=== PATIENT | female | born 1940 | race Caucasian/White ===

== ENCOUNTER 2019-07-27 17:20 | Inpatient (IN) | payer MEDICAID, MEDICARE ==
[~2019-07-27] VITALS: Ht 152.4 cm; Wt 59.0 kg
[2019-07-27 19:40] VITALS: BP 101/60
--- NOTE | 2019-07-27 19:50 | NUR ---
MS SAIL FINISHER MACHINE NOTES Received patient via gurney accompanied by 2 lead javascript developer. Admitted to [facility] 316-2 due to UTI under the service of Dr. Mancera. Admission routine done. Belongings inventory completed by the assigned EMT/PARAMEDIC. Leelee RESENDIZ, with admission ordered noted and carried out. Per daughter, she is going to bring the medication list the patient is taking. Daughter remained at bedside throughout the shift. Patient is A/O x4, Turkmen speaking only. Kept on bed clean, dry and comfortable. All nursing needs attended. No due meds at this time. Will continue to monitor accordingly.
[2019-07-27 20:45] VITALS: BP 101/60
[2019-07-27] MEDS ORDERED: ONDANSETRON HCL/PF 4 MG/2 ML VIAL IVP PRN (21:00)
[2019-07-27] MEDS ORDERED: Z GUARD REMEDY 2 OZ OINT TP PRN (21:00)
[2019-07-27] MEDS ORDERED: MAGNESIUM HYDROXIDE 30 ML UDC PO PRN (21:00)
[2019-07-27] MEDS ORDERED: ZOLPIDEM TARTRATE 5 MG TABLET PO PRN (21:00)
[2019-07-27] MEDS ORDERED: ACETAMINOPHEN 325 MG TABLET PO PRN (21:00)
[2019-07-27] MEDS ORDERED: MAG HYDROX/AL HYDROX/SIMETH 30 ML UDC PO PRN (21:00)
--- NOTE | 2019-07-28 06:50 | NUR ---
MS RN CLOSING NOTES Patient asleep, easily awaken. On RA, no SOB/respiratory distress noted. All nursing needs attended. Due meds given ordered, no ASE noted. Kept on bed clean, dry and comfortable. On fall precautions, call light within easy reach. Endorsed to the next shift.
[2019-07-28 07:16] LABS: BASOPHILS # (AUTO) 0.1 /CMM (0.0-0.2); BASOPHILS % (AUTO) 0.8 % (0.0-2.0); EOSINOPHILS % (AUTO) 1.4 % (0.0-6.0); HEMATOCRIT 41 % (33-45); HEMOGLOBIN 13.4 g/dL (11.5-14.8); LYMPHOCYTES # (AUTO) 1.7 /CMM (0.8-4.8); LYMPHOCYTES % (AUTO) 24.6 % (20.0-44.0); MEAN CORPUSCULAR HGB CONC 33 g/dl (31.0-36.0); MEAN CORPUSCULAR VOLUME 90 fL (82-100); MONOCYTES # (AUTO) 0.4 /CMM (0.1-1.30); MONOCYTES % (AUTO) 6.3 % (2.0-12.0); NEUTROPHILS # (AUTO) 4.7 /CMM (1.8-8.9); NEUTROPHILS % (AUTO) 66.9 % (43.0-81.0); PLATELET COUNT (AUTO) 196 /CMM (150-450); RED BLOOD CELL COUNT(AUTO) 4.57 MIL/uL (4.0-5.2)
[2019-07-28 07:19] LABS: CHOLESTEROL 131 mg/dL (<200); HDL CHOLESTEROL 35 mg/dL (40-60); LDL 59 mg/dL (0-99); TRIGLYCERIDES 238 mg/dL (30-150)
[2019-07-28 08:00] VITALS: BP 100/53
--- NOTE | 2019-07-28 08:00 | NUR ---
MS CAREN AM NOTES Received patient alert,awake with daughter at the bedside.Per daughter, she is going to bring the medication list the patient is taking.Patient is A/O x4, South Sudanese speaking only.Denies any pain or distress. Kept on bed clean, dry and comfortable.Call light placed within reach. Will continue to monitor accordingly.
[2019-07-28 08:41] LABS: CARBON DIOXIDE 24 mmol/L (21-32); CHLORIDE 106 mmol/L (98-107); CREATININE 1.4 mg/dL (0.6-1.3); GLUCOSE 85 mg/dL (74-106); MAGNESIUM 1.3 mg/dL (1.8-2.4); PHOSPHORUS 2.2 mg/dL (2.5-4.9); POTASSIUM 3.4 mmol/L (3.5-5.1); SODIUM SERUM 140 mmol/L (136-145); UREA NITROGEN, BLOOD 17 mg/dL (7-18)
[2019-07-28 08:55] LABS: CALCIUM, SERUM 16.7 mg/dL (8.5-10.1)
[2019-07-28] MEDS ORDERED: POTASSIUM CHLORIDE 20 MEQ TAB.PRT.SR PO SCH (09:30)
[2019-07-28] MEDS ORDERED: ASPI-605 PO (09:37)
[2019-07-28] MEDS ORDERED: LUBI8CAP PO (09:37)
[2019-07-28] MEDS ORDERED: ENAL10TA PO (09:37)
[2019-07-28] MEDS ORDERED: K PHOS NEUTRAL 250 MG TABLET PO ONE (10:00)
[2019-07-28] MEDS: Magnesium 1GM/D5W 100ML PREMIX 100 ML IV SCH ×4 (10:00→14:43)
[2019-07-28] MEDS ORDERED: IV NS 0.9% 1,000 ML IV PRN (10:30)
[2019-07-28] MEDS: IV NS 0.9% 1,000 ML IV PRN (10:42)
[2019-07-28] MEDS ORDERED: IV NS 0.9% 1,000 ML BAG IV SCH (11:00)
--- NOTE | 2019-07-28 11:34 | NUR ---
PT WAS BROUGHT DOWN TO CT DELAYING IV MG ADMINISTRATION
[2019-07-28 11:39] LABS: APPEARANCE,URINE CLEAR (CLEAR); BILIRUBIN,URINE NEGATIVE (NEGATIVE); BLOOD, URINE NEGATIVE Ery/uL (NEGATIVE); COLOR,URINE YELLOW (YELLOW); KETONES,URINE NEGATIVE (NEGATIVE); LEUKOCYTE ESTERASE ,URINE 2+ (NEGATIVE); NITRITE, URINE NEGATIVE (NEGATIVE); PH,URINE 6.5 (5.0-8.0); PROTEIN,URINE TRACE mg/dl (NEGATIVE); UGLUCOSE NEGATIVE (NEGATIVE); UROBILINOGEN,URINE 0.2 EU/dL (0.2)
[2019-07-28 11:53] LABS: BACTERIA,URINE None seen /HPF (None Seen); RBC,URINE 0-2 /HPF (0-2); SQUAMOUS EPITHELIAL CELL,UR H /HPF (None Seen)
--- NOTE | 2019-07-28 11:56 | NUR ---
PT came back FROM CT SCAN PROCEDURE
[2019-07-28 16:00] VITALS: BP 101/67
--- NOTE | 2019-07-28 18:55 | NUR ---
RN medsurg opening notes Received Pt from morning nurse. Pt is alert and oriented X4. Pt's daughter at the bedside. Respiration is normal. NO SOB. No nausea or vomiting. Pt denies any pain or discomfort at this time. IV sites at RFA # 20 is clean, intact, patent and infusing well NS @ 100ml/hr. Instructed to call. Safety precautions is maintained. Bed at low position, brakes locked, side rails upX2 and call light is within reach. Will continue to monitor and assist all needs.
--- NOTE | 2019-07-28 19:09 | NUR ---
PT RESTING IN BED DENYING Any PAIN OR DISTRESS.WITH ONGOING IVF OF NS AT 100 ML/HR INFUSING WELL.WITH DAUGHTER AT BEDSIDE. CALL LIGHT PLACED WITHIN REACH.
[2019-07-28 20:00] VITALS: BP 106/57
[2019-07-28] MEDS: CEFTRIAXONE 1 G in IV D5W 50 ML IV SCH (20:11)
[2019-07-29] MEDS: IV NS 0.9% 1,000 ML IV PRN ×2 (04:07→17:16)
--- NOTE | 2019-07-29 06:49 | NUR ---
RN medsurg closing notes Pt is sleeping in bed comfortably. Awaken easily. Pt's daughter at the bedside. Respiration is normal. No SOB. No nausea or vomiting. IV sites at RFA is clean, intact and infusing NS @ 100ml/hr. All needs met and attended. Routine meds given as ordered. VS is stable. Kept Pt clean, dry and warm. Instructed to call. Safety precautions is maintained. Bed at low position, brakes locked, side rails up X2 and call light is within reach. Will endorse to morning nurse for MARIELENA.
[2019-07-29 06:59] LABS: CARBON DIOXIDE 27 mmol/L (21-32); CHLORIDE 108 mmol/L (98-107); CREATININE 1.4 mg/dL (0.6-1.3); GLUCOSE 85 mg/dL (74-106); MAGNESIUM 2.2 mg/dL (1.8-2.4); PHOSPHORUS 1.9 mg/dL (2.5-4.9); POTASSIUM 3.1 mmol/L (3.5-5.1); SODIUM SERUM 140 mmol/L (136-145); UREA NITROGEN, BLOOD 13 mg/dL (7-18)
[2019-07-29 07:28] LABS: CALCIUM, SERUM 13.5 mg/dL (8.5-10.1)
[2019-07-29 08:00] VITALS: BP 105/62
--- NOTE | 2019-07-29 08:00 | NUR ---
MS RN opening notes Received Pt is alert and oriented X4. Respiration is normal. NO SOB. No nausea or vomiting. Pt denies any pain or discomfort at this time. IV sites at RFA # 20 is clean, intact, patent and infusing well NS @ 100ml/hr. Instructed to call. Safety precautions is maintained. Bed at low position, brakes locked, side rails upX2 and call light is within reach. Will continue to monitor and assist all needs.
[2019-07-29] MEDS ORDERED: K PHOS NEUTRAL 250 MG TABLET PO ONE (12:00)
[2019-07-29] MEDS: POTASSIUM CHLORIDE 20 MEQ TAB.PRT.SR PO SCH ×2 (12:13→13:56)
[2019-07-29] MEDS ORDERED: CALCITONIN,SALMON INJ 400 UNITS/2 ML VIAL SQ SCH (13:00)
[2019-07-29 16:00] VITALS: BP 105/62
--- NOTE | 2019-07-29 17:21 | NUR ---
PT SITTING IN THE CHAIR BY THE SIDE OF BED.EATING DINNER.WITH ONGOING IVF NS AT 75 ML/HR INFUSING WELL.DAUGHTER AT THE BEDSIDE.DENYING ANY PAIN OR DISTRESS. CALL LIGHT PLACED WITHIN REACH.
--- NOTE | 2019-07-29 18:55 | NUR ---
RN zeeshanrjaneth opening notes Received Pt from morning nurse. Pt is resting in bed comfortably watching TV. Pt is alert and orientedX4. Pt speaks Paraguayan and able to make needs known. Pt's daughter at the bed side. Respiration is normal. No SOB. No nausea or vomiting. No S/S of distress noted. POC of was discussed with Pt and Pt's daughter. Pt and Pt's daughter verbalized understanding. IV sites at RFA #20 is clean, intact, patent and infusing well NS @ 75 ml/hr. Instructed to call. Safety precautions is maintained. Bed at low position, side rails upX2, brakes locked and call light is within reach. Will continue to monitor and assist all needs.
[2019-07-29] MEDS: HYDROCODONE/APAP 5/325MG 1 EACH TABLET PO PRN (19:25)
--- NOTE | 2019-07-29 19:26 | NUR ---
RN medsurg notes Administered [place] 5-325 tab/1 tab/ PO as ordered for right leg pain 6/10 on pain scale per Pt request. Instructed to call. Will continue to monitor.
[2019-07-29 20:00] VITALS: BP 108/62
[2019-07-29 20:07] VITALS: BP 108/62
[2019-07-29] MEDS: CEFTRIAXONE 1 G in IV D5W 50 ML IV SCH (20:09)
[2019-07-30] MEDS: IV NS 0.9% 1,000 ML IV PRN (05:31)
--- NOTE | 2019-07-30 07:00 | NUR ---
RN medsurg closing notes Pt is sleeping in bed comfortably. Awaken easily. Respiration is normal. No SOB. No nausea or vomiting. Pt denies any pain or discomfort at this time. IV sites at RFA is clean, intact and patent. All needs met and attended. Routine meds given as ordered. VS is stable. Kept Pt clean, dry and warm. Instructed to call. Safety precautions is maintained. Bed at low position, brakes locked, side rails up X2 and call light is within reach. Will endorse to morning nurse for MARIELENA.
[2019-07-30 07:01] LABS: BASOPHILS % (AUTO) 0.8 % (0.0-2.0); EOSINOPHILS % (AUTO) 6.1 % (0.0-6.0); HEMATOCRIT 35 % (33-45); HEMOGLOBIN 11.5 g/dL (11.5-14.8); LYMPHOCYTES # (AUTO) 1.9 /CMM (0.8-4.8); LYMPHOCYTES % (AUTO) 40.7 % (20.0-44.0); MEAN CORPUSCULAR HGB CONC 33 g/dl (31.0-36.0); MEAN CORPUSCULAR VOLUME 90 fL (82-100); MONOCYTES # (AUTO) 0.3 /CMM (0.1-1.30); MONOCYTES % (AUTO) 5.9 % (2.0-12.0); NEUTROPHILS # (AUTO) 2.2 /CMM (1.8-8.9); NEUTROPHILS % (AUTO) 46.5 % (43.0-81.0); PLATELET COUNT (AUTO) 163 /CMM (150-450); RED BLOOD CELL COUNT(AUTO) 3.85 MIL/uL (4.0-5.2); WHITE BLOOD COUNT (AUTO) 4.7 K/uL (4.3-11.0)
[2019-07-30 07:04] LABS: ALBUMIN 2.4 g/dL (3.4-5.0); BILIRUBIN,TOTAL 0.2 mg/dL (0.2-1.0); CALCIUM, SERUM 12.1 mg/dL (8.5-10.1); CREATININE 1.1 mg/dL (0.6-1.3); MAGNESIUM 1.6 mg/dL (1.8-2.4); POTASSIUM 3.3 mmol/L (3.5-5.1); TOTAL PROTEIN, SERUM 5.3 g/dL (6.4-8.2)
--- NOTE | 2019-07-30 07:38 | NUR ---
RN OPENING NOTES PT AWAKE AND RESTING IN BED. NO COMPLAINTS OF PAIN, DISTRESS OR SOB AT THIS TIME. PT HAS RIGHT FA #20 RUNNING NS @75 ML/HR. SAFETY PRECAUTIONS IN PLACE, BED IN LOWEST LOCKED POSITION, X2 SIDE RAILS UP AND CALL LIGHT WITHIN REACH. WILL CONTINUE TO MONITOR.
[2019-07-30 08:01] VITALS: BP 101/59
[2019-07-30] MEDS: CALCITONIN,SALMON,SYNTHETIC 3.7 ML SPRAY.PUMP NS SCH (08:19)
[2019-07-30] MEDS: HYDROCODONE/APAP 5/325MG 1 EACH TABLET PO PRN (09:14)
[2019-07-30] MEDS ORDERED: K PHOS NEUTRAL 250 MG TABLET PO ONE (10:00)
[2019-07-30] MEDS: Magnesium 1GM/D5W 100ML PREMIX 100 ML IV SCH ×2 (10:33→11:40)
[2019-07-30] MEDS: POTASSIUM CHLORIDE 20 MEQ TAB.PRT.SR PO SCH ×2 (10:33→11:40)
--- NOTE | 2019-07-30 11:00 | NUR ---
RN NOTES PER DR MATHIS, ORDER NEURO CONSULT AND CT OF HEAD WITHOUT CONTRAST. WILL INPUT ORDERS.
[2019-07-30 16:25] VITALS: BP 99/58
--- NOTE | 2019-07-30 18:31 | NUR ---
RN CLOSING NOTES PT AWAKE AND RESTING IN BED. PT PRIMARY THAI SPEAKER. NO COMPLAINTS OF PAIN, DISTRESS OR SOB AT THIS TIME. PT HAS RIGHT FA #20 RUNNING NS @75 ML/HR. SAFETY PRECAUTIONS IN PLACE, BED IN LOWEST LOCKED POSITION, X2 SIDE RAILS UP AND CALL LIGHT WITHIN REACH. WILL ENDORSE TO VISION IMPAIRED TEACHER NURSE FOR CONTINUITY OF CARE.
--- NOTE | 2019-07-30 19:10 | NUR ---
MS RN OPENING NOTES Received patient in bed, alert, oriented x 4. Speaks Barbadian and able to make needs known. Pt's daughter at the bed side. Breathing even and unlabored. No S/S of distress noted. IV site intact and patent with IVF infusing at 75mL/hr. Instructed to call. Safety precautions is maintained. Bed at low position, side rails upX2, brakes locked and call light is within reach. Will continue to monitor and assist all needs.
[2019-07-30 20:00] VITALS: BP 110/68
[2019-07-30] MEDS: CEFTRIAXONE 1 G in IV D5W 50 ML IV SCH (20:10)
[2019-07-30 20:54] VITALS: BP 110/68
[2019-07-31] MEDS: IV NS 0.9% 1,000 ML IV PRN (06:00)
--- NOTE | 2019-07-31 06:43 | NUR ---
MS RN CLOSING NOTES Patient in bed, alert, oriented x 4, Daughter at the bed side. Breathing even and unlabored. No S/S of distress noted. IV site intact and patent with IVF infusing at 75mL/hr. No acute changes overnight. Kept clean and comfortable. Safety precautions is maintained. Bed at low position, side rails upX2, brakes locked and call light is within reach. Will endorse MARIELENA to oncoming RN
[2019-07-31 06:52] LABS: CARBON DIOXIDE 19 mmol/L (21-32); CHLORIDE 114 mmol/L (98-107); CREATININE 1.2 mg/dL (0.6-1.3); GLUCOSE 101 mg/dL (74-106); MAGNESIUM 2.1 mg/dL (1.8-2.4); PHOSPHORUS 2.8 mg/dL (2.5-4.9); SODIUM SERUM 147 mmol/L (136-145); UREA NITROGEN, BLOOD 9 mg/dL (7-18)
--- NOTE | 2019-07-31 07:00 | NUR ---
RN NOTES Critical value of calcium of 13 reported by [facility]. Will endorse to AM RN
[2019-07-31 08:02] VITALS: BP 114/69
--- NOTE | 2019-07-31 08:08 | NUR ---
RN OPENING NOTES PT AWAKE AND RESTING IN BED. DAUGHTER AT BEDSIDE. NO COMPLAINTS OF PAIN, DISTRESS OR SOB AT THIS TIME. PT HAS RIGHT FA #20 RUNNING NS @75 ML/HR. SAFETY PRECAUTIONS IN PLACE, BED IN LOWEST LOCKED POSITION, X2 SIDE RAILS UP AND CALL LIGHT WITHIN REACH. WILL CONTINUE TO MONITOR. Addendum: 07/31/19 at 0809 by KVNG BISHOP RN PER PATIENT FEELING "SO MUCH BETTER TODAY".
[2019-07-31] MEDS: CALCITONIN,SALMON,SYNTHETIC 3.7 ML SPRAY.PUMP NS SCH (08:33)
--- NOTE | 2019-07-31 14:30 | NUR ---
RN NOTES FOLLOWED UP WITH RADIOLOGY CONCERNING CT OF LUMBAR SPINE. JANET MONTANO WILL RETURN PHONE CALL WHEN HE HAS AN APPROXIMATE TIME ABLE TO SCENERY BUILDER PATIENT.
[2019-07-31] MEDS: IV D5/0.45 NACL 1,000 ML IV SCH ×2 (15:28→22:47)
[2019-07-31 16:15] VITALS: BP 98/54
--- NOTE | 2019-07-31 18:27 | NUR ---
RN CLOSING NOTES PT AWAKE AND RESTING IN BED. PT PRIMARILY SLOVENIAN SPEAKER. FAMILY AT BEDSIDE. NO COMPLAINTS OF PAIN, DISTRESS OR SOB DURING SHIFT. PT HAS RIGHT FA #20 RUNNING D5 1/2NS @125 ML/HR. SAFETY PRECAUTIONS IN PLACE, BED IN LOWEST LOCKED POSITION, X2 SIDE RAILS UP AND CALL LIGHT WITHIN REACH. WILL ENDORSE TO FRANCHISE BUSINESS CONSULTANT NURSE FOR CONTINUITY OF CARE.
--- NOTE | 2019-07-31 19:30 | NUR ---
rn initial notes: received report from juan dunn. pt in bed, awake, amharic speaker only. met with family at bed side who can speak divehi and help with translation for pt. pt is a/o x4, on ra respirations even and unlabored. denies any pain or discomfort at this time. only request is to get a break from ivf. granted, and will be off ivf for 2hrs. will connect back at 2100. discussed plan of care to pt and family. ble offloaded. safety precautions for fall initiated, call light in reach, will continue monitoring pt.
[2019-07-31 20:00] VITALS: BP 106/62
--- NOTE | 2019-07-31 21:05 | NUR ---
rn notes: noted pt;s iv access with minimal swelling, able to flush well. informed pt about iv reinsertion, but pt refused. education provided to pt. but pt insisted to keep iv access, and refusing to replaced it. all communication translated by pt's daughter.
--- NOTE | 2019-08-01 03:00 | NUR ---
rn notes: bed bath provided by roberto chairez, with complete linen change.
--- NOTE | 2019-08-01 06:26 | NUR ---
rn notes: pt requested to take a break from ivf. granted, will connect back again to ivf after breakfast.
[2019-08-01 06:27] LABS: BASOPHILS # (AUTO) 0.1 /CMM (0.0-0.2); BASOPHILS % (AUTO) 0.9 % (0.0-2.0); EOSINOPHILS % (AUTO) 3.8 % (0.0-6.0); HEMATOCRIT 39 % (33-45); HEMOGLOBIN 12.7 g/dL (11.5-14.8); LYMPHOCYTES # (AUTO) 2.6 /CMM (0.8-4.8); LYMPHOCYTES % (AUTO) 39.8 % (20.0-44.0); MEAN CORPUSCULAR HGB CONC 32 g/dl (31.0-36.0); MEAN CORPUSCULAR VOLUME 91 fL (82-100); MONOCYTES # (AUTO) 0.5 /CMM (0.1-1.30); MONOCYTES % (AUTO) 8.4 % (2.0-12.0); NEUTROPHILS % (AUTO) 47.1 % (43.0-81.0); PLATELET COUNT (AUTO) 195 /CMM (150-450); RED BLOOD CELL COUNT(AUTO) 4.32 MIL/uL (4.0-5.2); WHITE BLOOD COUNT (AUTO) 6.4 K/uL (4.3-11.0)
[2019-08-01 07:06] LABS: CARBON DIOXIDE 20 mmol/L (21-32); CHLORIDE 113 mmol/L (98-107); CREATININE 1.4 mg/dL (0.6-1.3); GLUCOSE 140 mg/dL (74-106); MAGNESIUM 1.7 mg/dL (1.8-2.4); PHOSPHORUS 2.8 mg/dL (2.5-4.9); POTASSIUM 3.7 mmol/L (3.5-5.1); SODIUM SERUM 144 mmol/L (136-145); UREA NITROGEN, BLOOD 9 mg/dL (7-18)
--- NOTE | 2019-08-01 07:06 | NUR ---
rn closing notes: pt in bed, awake, remains a/o x4, denies any pain or discomfort at this time. iv access remains patent and flushing well, infusing with ivf as ordered. ble kept offloaded on pillows. vs remains stable, needs attended. safety precautions for fall remain engaged, call light in reach, will endorse to day rn for continuity of care.
--- NOTE | 2019-08-01 07:12 | NUR ---
critical lab result for ca 14.5: received critical result for calcium, 14.5, reported by tyree mccullough. endorsed to mona martinez, notified epic military communications specialist, awaiting call back.
[2019-08-01 07:13] LABS: CALCIUM, SERUM 14.5 mg/dL (8.5-10.1)
[2019-08-01 08:00] VITALS: BP 123/63
--- NOTE | 2019-08-01 08:00 | NUR ---
RN OPENING NOTES PT AWAKE AND RESTING IN BED. PT PRIMARILY KITTITIAN SPEAKER. NO COMPLAINTS OF PAIN, DISTRESS OR SOB AT THIS TIME. PT HAS RIGHT FA #20 RUNNING D5 1/2NS @125 ML/HR. SAFETY PRECAUTIONS IN PLACE, BED IN LOWEST LOCKED POSITION, X2 SIDE RAILS UP AND CALL LIGHT WITHIN REACH. WILL CONTINUE TO MONITOR.
[2019-08-01] MEDS: CALCITONIN,SALMON,SYNTHETIC 3.7 ML SPRAY.PUMP NS SCH ×2 (08:17→17:59)
[2019-08-01] MEDS: Magnesium 1GM/D5W 100ML PREMIX 100 ML IV SCH ×2 (10:32→11:49)
[2019-08-01] MEDS ORDERED: PAMIDRONATE 90 MG in IV NS 0.9% 500 ML IV ONE (11:00)
[2019-08-01] MEDS: IV D5/0.45 NACL 1,000 ML IV SCH (13:09)
[2019-08-01 16:00] VITALS: BP 120/70
[2019-08-01] MEDS ORDERED: CALCITONIN,SALMON INJ 400 UNITS/2 ML VIAL SQ SCH (16:30)
--- NOTE | 2019-08-01 19:49 | NUR ---
RN CLOSING NOTES PT AWAKE AND RESTING IN BED. PT PRIMARILY [place] CITIZEN SPEAKER. NO COMPLAINTS OF PAIN, DISTRESS OR SOB DURING SHIFT. PT HAS LEFT FA #20 RUNNING D5 1/2NS @125 ML/HR. SAFETY PRECAUTIONS IN PLACE, BED IN LOWEST LOCKED POSITION, X2 SIDE RAILS UP AND CALL LIGHT WITHIN REACH. WILL ENDORSE TO FINANCE BROKER NURSE FOR CONTINUITY OF CARE.
[2019-08-01 20:00] VITALS: BP 120/69
--- NOTE | 2019-08-01 20:05 | NUR ---
RN MS OPENING NOTES RECEIVED PT IN BED, AWAKE ALERT ORIENTED X4, BREATHING EVEN AND UNLABORED ON ROOM AIR, NO COMPLAINT OF PAIN OR DISCOMFORT. IV ACCESS ON THE L FA 20 WITH D51/2 NS @125ML/HR. BED IN LOWEST LOCKED POSITION, CALL LIGHT WITHIN REACH AT ALL TIMES WILL CONTINUE TO MONITOR FREQUENTLY/
[2019-08-02] MEDS: IV D5/0.45 NACL 1,000 ML IV PRN (05:39)
--- NOTE | 2019-08-02 06:14 | NUR ---
RN MS CLOSING NOTES PT REMAINS IN BED, AWAKE ALERT ORIENTED X4, BREATHING EVEN AND UNLABORED ON ROOM AIR, NO COMPLAINT OF PAIN OR DISCOMFORT. DAUGHTER AT BEDSIDE. IV ACCESS ON THE L FA 20 WITH D51/2 NS @125ML/HR. BED IN LOWEST LOCKED POSITION, CALL LIGHT WITHIN REACH AT ALL TIMES WILL ENDORSE TO DAY NURSE FOR MARIELENA
--- NOTE | 2019-08-02 07:20 | NUR ---
RN OPENING NOTES RECEIVED PATIENT IN BED, AWAKE ALERT ORIENTED X3-4ABLE TO MAKE NEEDS KNOWN, GREENLANDIC SPEAKING ONLY, DAUGHTER AT BEDSIDE. BREATHING EVEN AND UNLABORED ON ROOM AIR SATTING 96%. NOT IN ANY FORM OF DISTRESS. NO COMPLAINT OF PAIN OR DISCOMFORT. IV ACCESS ON THE LFA 20 INTACT AND PATENT,IVF D5 1/2 NS @ 125ML/HR. BED IN LOWEST LOCKED POSITION, SEMIFOWLERS, CALL LIGHT WITHIN REACH AT ALL TIMES. WILL CONTINUE TO MONITOR ACCORDINGLY
[2019-08-02 07:23] LABS: BASOPHILS # (AUTO) 0.1 /CMM (0.0-0.2); BASOPHILS % (AUTO) 0.9 % (0.0-2.0); EOSINOPHILS % (AUTO) 3.8 % (0.0-6.0); HEMATOCRIT 38 % (33-45); HEMOGLOBIN 12.3 g/dL (11.5-14.8); LYMPHOCYTES % (AUTO) 34.2 % (20.0-44.0); MEAN CORPUSCULAR HGB CONC 32 g/dl (31.0-36.0); MEAN CORPUSCULAR VOLUME 92 fL (82-100); MONOCYTES # (AUTO) 0.5 /CMM (0.1-1.30); MONOCYTES % (AUTO) 7.6 % (2.0-12.0); NEUTROPHILS # (AUTO) 3.2 /CMM (1.8-8.9); NEUTROPHILS % (AUTO) 53.5 % (43.0-81.0); PLATELET COUNT (AUTO) 194 /CMM (150-450); RED BLOOD CELL COUNT(AUTO) 4.19 MIL/uL (4.0-5.2); WHITE BLOOD COUNT (AUTO) 5.9 K/uL (4.3-11.0)
[2019-08-02 07:26] LABS: CARBON DIOXIDE 20 mmol/L (21-32); CHLORIDE 112 mmol/L (98-107); CREATININE 1.4 mg/dL (0.6-1.3); GLUCOSE 102 mg/dL (74-106); PHOSPHORUS 2.5 mg/dL (2.5-4.9); POTASSIUM 3.3 mmol/L (3.5-5.1); SODIUM SERUM 143 mmol/L (136-145); UREA NITROGEN, BLOOD 8 mg/dL (7-18)
[2019-08-02 07:31] LABS: CALCIUM, SERUM 14.4 mg/dL (8.5-10.1)
[2019-08-02 08:00] VITALS: BP 106/67
[2019-08-02] MEDS: HYDROCODONE/APAP 5/325MG 1 EACH TABLET PO PRN ×2 (09:10→20:20)
[2019-08-02] MEDS: CALCITONIN,SALMON,SYNTHETIC 3.7 ML SPRAY.PUMP NS SCH (09:29)
[2019-08-02] MEDS ORDERED: POTASSIUM CHLORIDE 20 MEQ TAB.PRT.SR PO SCH (09:30)
[2019-08-02] MEDS: CINACALCET HCL 30 MG TABLET PO SCH ×2 (11:44→17:19)
[2019-08-02 18:00] VITALS: BP 129/76
--- NOTE | 2019-08-02 18:40 | NUR ---
PATIENT GOT PICKED UP FOR PARATHYROID SCAN
--- NOTE | 2019-08-02 19:10 | NUR ---
RN CLOSING NOTES PATIENT STILL IN NUCLEAR MED DEPT FOR PARATHYROID SCAN. ENDORSED TO CAREN RODRIGUEZ FOR MARIELENA.
--- NOTE | 2019-08-02 19:25 | NUR ---
RN MS OPENING NOTES RECEIVED REPORT FROM DAY NURSE, PT CURRENTLY OUT FOR PARATHYROID SCAN
--- NOTE | 2019-08-02 19:35 | NUR ---
RN NOTES- PT BACK FROM SCAN, IN BED, AWAKE ALERT ORIENTED X4, BREATHING EVEN AND UNLABORED ON ROOM AIR, IV ACCESS ON THE R FA20G, NO COMPLAINT OF PAIN OR DISCOMFORT AT THIS TIME WILL CONTINUE TO MONITOR FREQUENTLY.
[2019-08-02 20:00] VITALS: BP 127/60
--- NOTE | 2019-08-02 20:22 | NUR ---
NM; PARATHYROID SCAN WAS COMPLETED; TECH:RB
--- NOTE | 2019-08-02 20:46 | NUR ---
RN NOTES- NEUROSURGEON CONSULT DONE, POS ENT TO F/U
--- NOTE | 2019-08-03 06:04 | NUR ---
RN MS CLOSING NOTES PT REMAINS IN BED, SLEEPING, BREATHING EVEN AND UNLABORED ON ROOM AIR, NO COMPLAINT OF PAIN OR DISCOMFORT. DAUGHTER AT BEDSIDE. IV ACCESS ON THE R FA 20 WITH D51/2 NS @125ML/HR. BED IN LOWEST LOCKED POSITION, CALL LIGHT WITHIN REACH AT ALL TIMES WILL ENDORSE TO DAY NURSE FOR MARIELENA
[2019-08-03 07:19] LABS: BASOPHILS % (AUTO) 0.7 % (0.0-2.0); EOSINOPHILS % (AUTO) 3.1 % (0.0-6.0); HEMATOCRIT 36 % (33-45); HEMOGLOBIN 11.9 g/dL (11.5-14.8); LYMPHOCYTES # (AUTO) 1.8 /CMM (0.8-4.8); LYMPHOCYTES % (AUTO) 36.6 % (20.0-44.0); MEAN CORPUSCULAR HGB CONC 33 g/dl (31.0-36.0); MEAN CORPUSCULAR VOLUME 91 fL (82-100); MONOCYTES # (AUTO) 0.4 /CMM (0.1-1.30); MONOCYTES % (AUTO) 8.8 % (2.0-12.0); NEUTROPHILS # (AUTO) 2.5 /CMM (1.8-8.9); NEUTROPHILS % (AUTO) 50.8 % (43.0-81.0); PLATELET COUNT (AUTO) 186 /CMM (150-450); RED BLOOD CELL COUNT(AUTO) 3.96 MIL/uL (4.0-5.2); WHITE BLOOD COUNT (AUTO) 4.9 K/uL (4.3-11.0)
[2019-08-03 07:43] LABS: CALCIUM, SERUM 11.3 mg/dL (8.5-10.1); CREATININE 1.2 mg/dL (0.6-1.3); MAGNESIUM 1.8 mg/dL (1.8-2.4); PHOSPHORUS 1.6 mg/dL (2.5-4.9); POTASSIUM 3.6 mmol/L (3.5-5.1)
[2019-08-03 08:00] VITALS: BP 104/69
[2019-08-03 08:09] LABS: *SPE A/G RATIO 0.9 (0.7-1.7); *SPE ALBUMIN 2.3 g/dL (2.9-4.4); *SPE ALPHA-1-GLOBULIN 0.3 g/dL (0.0-0.4); *SPE ALPHA-2-GLOBULIN 0.8 g/dL (0.4-1.0); *SPE BETA GLOBULIN 0.9 g/dL (0.7-1.3); *SPE GLOBULIN, TOTAL 2.5 g/dL (2.2-3.9); *SPE M-SPIKE Not Observed g/dL (Not Observed); *SPEGAMMA GLOBULIN 0.6 g/dL (0.4-1.8)
--- NOTE | 2019-08-03 08:15 | NUR ---
ms rn received on bed, awake,alert,oriented x4,not in any form of distress, respirations even and unlabored,no sob noted, lugs are clear,abdomen soft,positive bowel sounds,denies pain at this time,will monitor patient's condition.
[2019-08-03] MEDS ORDERED: K PHOS NEUTRAL 250 MG TABLET PO ONE (09:00)
[2019-08-03] MEDS: CINACALCET HCL 30 MG TABLET PO SCH ×2 (09:08→17:42)
[2019-08-03] MEDS: CALCITONIN,SALMON,SYNTHETIC 3.7 ML SPRAY.PUMP NS SCH (09:11)
[2019-08-03 09:55] LABS: EOSINOPHILS % (MANUAL) 4 % (0-4); LYMPHOCYTES % (MANUAL) 32 % (16-48); MONOCYTES % (MANUAL) 9 % (0-11.0); NEUTROPHILS % (MANUAL) 55 (42-76)
--- NOTE | 2019-08-03 12:20 | NUR ---
ms rn patient was seen by speech therapy, jai to have mechanical soft food. Addendum: 08/03/19 at 1534 by SELAM VINES RN wrong patient disregard entry
--- NOTE | 2019-08-03 13:00 | NUR ---
ms rn eating lunch, tolerated well, no s/s of dehydration.
--- NOTE | 2019-08-03 15:33 | NUR ---
ms dunn wrong pt entry, disregard, note.
--- NOTE | 2019-08-03 16:25 | NUR ---
MS RN ON BED, SLEEPING.NO DISTRESS NOTED.
[2019-08-03] MEDS: IV D5/0.45 NACL 1,000 ML IV PRN (17:43)
--- NOTE | 2019-08-03 18:02 | NUR ---
ms rn on bed, no distress noted.
--- NOTE | 2019-08-03 20:41 | NUR ---
recieved alert and orientated on the phone talking to her dtr. smiling. dtr candy at the bedside visiting iv site without swelling or redness
[2019-08-04] MEDS: IV D5/0.45 NACL 1,000 ML IV PRN (02:44)
--- NOTE | 2019-08-04 05:17 | NUR ---
visited by her daughter last night. Her dtr wants to notified when she is discharged, will relay this to day shift. Ms. Abraham is alert and orientated speaks kyrgyz. Uses a diaper call light reviewed with patient. a good night uneventful bed alarm used thru the night afebrile
[2019-08-04 06:56] VITALS: BP 104/69
[2019-08-04 07:38] LABS: CALCIUM, SERUM 8.4 mg/dL (8.5-10.1); CREATININE 1.2 mg/dL (0.6-1.3); MAGNESIUM 1.6 mg/dL (1.8-2.4); PHOSPHORUS 1.3 mg/dL (2.5-4.9)
[2019-08-04 07:43] LABS: POTASSIUM 2.8 mmol/L (3.5-5.1)
[2019-08-04 08:00] VITALS: BP 122/73
--- NOTE | 2019-08-04 08:10 | NUR ---
MS RN RECEIVED ON BED, AWAKE,ALERT,ORIENTED X4,NOT IN ANY FORM OF DISTRESS, RESPIRATIONS EVEN AND UNLABORED,NO SOB NOTED.LUNGS ARE CLEAR, ABDOMEN SOFT,POSITIVE BOWEL SOUNDS,DENIES PAIN AT THIS TIME,ALL NEEDS ATTENDED.
--- NOTE | 2019-08-04 09:00 | NUR ---
MS FABIAN BREAKFAST SERVED,DUE MEDS GIVEN,TOLERATED.
[2019-08-04] MEDS: CINACALCET HCL 30 MG TABLET PO SCH ×2 (09:01→16:47)
[2019-08-04] MEDS: CALCITONIN,SALMON,SYNTHETIC 3.7 ML SPRAY.PUMP NS SCH (09:02)
[2019-08-04] MEDS: POTASSIUM CHLORIDE 20 MEQ TAB.PRT.SR PO SCH ×3 (09:57→13:06)
[2019-08-04] MEDS: Magnesium 1GM/D5W 100ML PREMIX 100 ML IV SCH ×4 (09:57→14:47)
[2019-08-04] MEDS ORDERED: K PHOS NEUTRAL 250 MG TABLET PO ONE (10:00)
--- NOTE | 2019-08-04 10:00 | NUR ---
ms rn was seen by dr. hartman, was told to call her if the grand daughter is here, wants to talk w/ her.
[2019-08-04] MEDS ORDERED: POTASSIUM CHLORIDE 20 MEQ TAB.PRT.SR PO ONE (13:00)
[2019-08-04 14:07] LABS: PTH, INTACT 1005 pg/mL (15-65)
--- NOTE | 2019-08-04 16:00 | NUR ---
ms rn grand daughter did not come,all needs attended.
[2019-08-04 16:07] VITALS: BP 118/69
--- NOTE | 2019-08-04 17:04 | NUR ---
ms rn on bed,no distress noted.
--- NOTE | 2019-08-04 17:15 | NUR ---
ms rn on bed, daughter at bedside, all needs attended.
--- NOTE | 2019-08-04 19:43 | NUR ---
MS RN RECEIVE PT IN BED A/O X 3, RESPIRATIONS EVEN AND UNLABORED, STABLE, SAFETY MEASURES IN PLACE. WILL CONTINUE TO MONITOR.
[2019-08-04 20:00] VITALS: BP 106/65
--- NOTE | 2019-08-05 06:24 | NUR ---
MS RN ASLEEP AND EASILY AWAKEN. STABLE. NO S/S OF DISTRESS. KEPT CLEAN AND DRY AND COMFORTABLE. NEEDS ATTENDED AND ANTICIPATED. NURSING CARE RENDERED, DAUGHTER AT BEDSIDE. OFFLOAD HEELS AND ELBOWS AT ALL TIMES. NO C/O OF PAIN. SAFETY MEASURES AT ALL TIMES. ENDORSE TO THE NEXT SHIFT.
[2019-08-05 07:49] LABS: BASOPHILS # (AUTO) 0.1 /CMM (0.0-0.2); EOSINOPHILS % (AUTO) 1.6 % (0.0-6.0); HEMATOCRIT 37 % (33-45); HEMOGLOBIN 12.1 g/dL (11.5-14.8); LYMPHOCYTES # (AUTO) 2.4 /CMM (0.8-4.8); MEAN CORPUSCULAR HGB CONC 33 g/dl (31.0-36.0); MEAN CORPUSCULAR VOLUME 91 fL (82-100); MONOCYTES # (AUTO) 0.5 /CMM (0.1-1.30); MONOCYTES % (AUTO) 7.8 % (2.0-12.0); NEUTROPHILS # (AUTO) 3.2 /CMM (1.8-8.9); NEUTROPHILS % (AUTO) 50.6 % (43.0-81.0); PLATELET COUNT (AUTO) 201 /CMM (150-450); RED BLOOD CELL COUNT(AUTO) 4.11 MIL/uL (4.0-5.2); WHITE BLOOD COUNT (AUTO) 6.2 K/uL (4.3-11.0)
[2019-08-05 07:57] LABS: ALBUMIN 2.6 g/dL (3.4-5.0); BILIRUBIN,TOTAL 0.3 mg/dL (0.2-1.0); CALCIUM, SERUM 8.4 mg/dL (8.5-10.1); MAGNESIUM 2.2 mg/dL (1.8-2.4); PHOSPHORUS 1.2 mg/dL (2.5-4.9); POTASSIUM 4.3 mmol/L (3.5-5.1); TOTAL PROTEIN, SERUM 5.9 g/dL (6.4-8.2)
[2019-08-05 08:00] VITALS: BP 112/66
--- NOTE | 2019-08-05 11:32 | NUR ---
REPORT CALLED TO ROBINSON FABIAN ([facility])
--- NOTE | 2019-08-05 13:00 | NUR ---
PATIENT CLEARED FOR D/C TO SNF ([facility]) BY MD. PATIENT AWAKE AND ALER ORIENTED X4 , POLISH SPEAKING ONLY. VS ARE STABLE AND WITHIN BASELINE, ON ROOM AIR SATURATION ABOVE 97%. SKIN INTACT. PATIENT ABLE TO USE BSC WITH ASSISTANTS. D/C TEACHING AND INSTRUCTIONS GIVEN TO PATIENTS DAUGHTER DUE TO LANGUISH BARRIER; VERBALIZED UNDERSTANDING. PATIENT HAS NO BELONGING. D/C INSTRUCTIONS SIGHED BY DAUGHTER. IV ASSESS LINES REMOVED, NO BLEEDING NOTED. ID WRIST BAND REMOVED. PATIENT PICKED UP BY AMBULANCE
== END 2019-08-05 13:00 | DRG 469 ==
LOC: MED 19:27
PROVIDERS: ADMIT Family Medicine; ATTEND Nurse Practitioner Acute Care
DX: N17.9 Acute kidney failure, unspecified (principal); E44.0 Moderate protein-calorie malnutrition; E88.09 Other disorders of plasma-protein metabolism, not elsewhere classified; E83.52 Hypercalcemia; G62.9 Polyneuropathy, unspecified; M51.17 Intervertebral disc disorders with radiculopathy, lumbosacral region; E86.0 Dehydration; N25.81 Secondary hyperparathyroidism of renal origin; E87.6 Hypokalemia; E27.9 Disorder of adrenal gland, unspecified; K59.00 Constipation, unspecified; Z90.5 Acquired absence of kidney; E86.1 Hypovolemia; I12.9 Hypertensive chronic kidney disease with stage 1 through stage 4 chronic kidney disease, or unspecified chronic kidney disease; N18.9 Chronic kidney disease, unspecified; E03.9 Hypothyroidism, unspecified; E04.2 Nontoxic multinodular goiter; D35.00 Benign neoplasm of unspecified adrenal gland; R74.8 Abnormal levels of other serum enzymes; Z90.49 Acquired absence of other specified parts of digestive tract; K29.70 Gastritis, unspecified, without bleeding; M62.50 Muscle wasting and atrophy, not elsewhere classified, unspecified site; M85.80 Other specified disorders of bone density and structure, unspecified site; M46.92 Unspecified inflammatory spondylopathy, cervical region
CPT/HCPCS: 36415; 70450-TC; 72125-TC; 72131-TC; 72141-TC; 72148-TC; 80048-TC; 80053-TC; 80061-TC; 81000-TC; 82232; 82533; 82550-TC; 83735-TC; 83970; 84100-TC; 84155; 84165; 84443-TC; 85025-TC; 87081-TC; 87086-TC; 97110-TC; 97116-TC; 97530-TC; A9500; G0378; J0630; J0696; J2405; J2430; J3475; J3490; J7030; J7040; J7060